=== PATIENT | female | born 1950 | race Caucasian/White ===

== ENCOUNTER 2018-10-17 10:15 | Emergency (ER) | payer OTHER ==
[~2018-10-17] VITALS: Ht 162.6 cm; Wt 122.5 kg
[2018-10-17] MEDS ORDERED: ZANTAC 150MG T150 MG PO (10:21)
[2018-10-17] MEDS ORDERED: BENAZEPRIL-HCT1 EA11 PO (10:21)
[2018-10-17] MEDS ORDERED: XANAX 0.25 MG0.25 MG PO (10:21)
[2018-10-17] MEDS ORDERED: ATENOLOL 25 MG25 M1 PO (10:21)
[2018-10-17] MEDS ORDERED: SYNTHROID100 MC1 PO (10:22)
[2018-10-17 10:28] LABS: ABSOLUTE NEUTROPHILS 6.3 thou/uL (1.4-8.2); BASOPHILS 1.1 % (0.0-2.0); EOSINOPHILS 0.5 % (0.0-3.0); HEMATOCRIT 41.6 % (37.0-47.0); HEMOGLOBIN 13.6 gm/dL (12.0-15.0); LYMPHOCYTES 23.3 % (24.0-44.0); MCH 28.1 pg (26.0-34.0); MCHC 32.8 g/dL (28.0-37.0); MCV 85.7 fL (80.0-100.0); MONOCYTES 6.1 % (1.0-8.0); PLATELET COUNT 299 thou/uL (150-400); RBC 4.85 mil/uL (4.20-5.00); RDW 14.2 % (10.5-14.5); WBC 9.1 thou/uL (4.0-11.0)
[2018-10-17 10:38] LABS: CALCIUM 9.1 mg/dL (8.5-10.1); POTASSIUM 3.5 mmol/L (3.5-5.1)
[2018-10-17 10:44] LABS: ALBUMIN 3.6 g/dL (3.4-5.0); TOTAL BILIRUBIN 0.4 mg/dL (<0.1-1.0); TOTAL PROTEIN 7.2 g/dL (6.4-8.2)
[2018-10-17 10:55] LABS: URINE BILIRUBIN NEGATIVE (Negative); URINE BLOOD NEGATIVE (Negative); URINE CLARITY CLEAR; URINE COLOR YELLOW; URINE GLUCOSE-RANDOM* NEGATIVE (Negative); URINE KETONES NEGATIVE (Negative); URINE LEUKOCYTES 1+ (Negative); URINE NITRITE NEGATIVE (Negative); URINE PROTEIN (DIPSTICK) NEGATIVE (Negative); URINE SPECIFIC GRAVITY 1.025 (1.005-1.035); URINE UROBILINOGEN 0.2 E.U./dl (0.2-1.0)
[2018-10-17 10:56] LABS: CASTS None Seen /LPF (None Seen); CRYSTALS None Seen /LPF (None Seen); SQUAMOUS 4-10 Moderate /LPF (0-3); URINE RBC 0-2 Rare /HPF (0-2); URINE WBC 0-5 Rare /HPF (0-5)
[2018-10-17 11:10] VITALS: BP 126/45
[2018-10-17] MEDS ORDERED: KEFLEX500 M1 PO (11:14)
== END 2018-10-17 11:29 | disposition home or self-care (01) ==
LOC: ER 10:15
PROVIDERS: Emergency Medicine
DX: N39.0 Urinary tract infection, site not specified (principal); E03.9 Hypothyroidism, unspecified; Z88.1 Allergy status to other antibiotic agents

== ENCOUNTER 2020-10-29 16:51 | Emergency (ER) | payer OTHER ==
[~2020-10-29] VITALS: Ht 162.6 cm; Wt 123.4 kg
[~2020-10-29 16:51] MED LIST: ATENOLOL 25 MG25 M1 PO; BENAZEPRIL-HCT1 EA11 PO; KEFLEX500 M1 PO; SYNTHROID100 MC1 PO; XANAX 0.25 MG0.25 MG PO; ZANTAC 150MG T150 MG PO
[2020-10-29 17:55] LABS: ABSOLUTE NEUTROPHILS 7.3 thou/uL (1.4-8.2); BASOPHILS 0.6 % (0.0-2.0); EOSINOPHILS 0.4 % (0.0-3.0); HEMATOCRIT 41.4 % (37.0-47.0); HEMOGLOBIN 13.7 gm/dL (12.0-15.0); LYMPHOCYTES 20.2 % (24.0-44.0); MCH 28.1 pg (26.0-34.0); MCHC 33.2 g/dL (28.0-37.0); MCV 84.7 fL (80.0-100.0); MONOCYTES 6.1 % (1.0-8.0); PLATELET COUNT 333 thou/uL (150-400); POLYS 72.7 % (36.0-66.0); RBC 4.89 mil/uL (4.20-5.00); RDW 13.8 % (10.5-14.5)
[2020-10-29 18:13] LABS: CALCIUM 9.7 mg/dL (8.5-10.1); CREATININE 0.9 mg/dL (0.6-1.0); POTASSIUM 3.6 mmol/L (3.5-5.1)
[2020-10-29 18:23] LABS: ALBUMIN 3.6 g/dL (3.4-5.0); TOTAL BILIRUBIN 0.4 mg/dL (0.2-1.0); TOTAL PROTEIN 7.3 g/dL (6.4-8.2)
[2020-10-29 19:11] LABS: URINE BILIRUBIN NEGATIVE (Negative); URINE BLOOD TRACE (Negative); URINE CLARITY CLEAR; URINE COLOR YELLOW; URINE GLUCOSE-RANDOM* NEGATIVE (Negative); URINE KETONES NEGATIVE (Negative); URINE NITRITE-REFLEX NEGATIVE (Negative); URINE PROTEIN (DIPSTICK) NEGATIVE (Negative); URINE UROBILINOGEN 0.2 E.U./dl (0.2-1.0)
[2020-10-29 19:12] LABS: URINE LEUKOCYTES-REFLEX 1+ (Negative)
[2020-10-29] MEDS ORDERED: CEPHALEXIN500 MG PO (19:39)
[2020-10-29 19:40] LABS: SQUAMOUS 0-3 Few /LPF (0-3); URINE RBC 1-2 Rare /HPF (NONE SEEN); URINE WBC-REFLEX 6-15 Few /HPF (0-5)
[2020-10-29 19:41] LABS: BACTERIA-REFLEX 1-9 Few /HPF (None Seen)
[2020-10-29 19:56] VITALS: BP 164/57
--- NOTE | 2020-11-01 07:27 | EKG ---
[address] [address] [place] [address] ELECTROCARDIOGRAM REPORT Name: ESVIN BRINK [id number] Admission: 10/29/20 Attend Phys: Discharge: 10/29/20 Date of : 54 Report #: [id number] [facility] ED Test Date: 2020-10-29 Test Time: 17:02:55 Pat Name: ESVIN BRINK Department: Room: Gender: F [employer]: ANDREA : 1950 Requested By: Ava Palomino Order Number: [id number] MD: Bi Bradley Measurements Intervals [place] Rate: 75 P: 39 CT: 155 QRS: -11 QRSD: 100 T: 46 QT: 400 QTc: 447 Interpretive Statements Sinus rhythm Low voltage, precordial leads RSR' in V1 or V2, probably normal variant Minimal ST depression, lateral leads No previous ECG available for comparison Electronically Signed On 11-01-2020 7:26:34 CDT by Bi Bradley [email or web address] <ELECTRONICALLY SIGNED> By: Bi Bradley MD, [facility] 11/01/20 0726 1701 01 Bi Bradley MD, FACC /EPI
== END 2020-10-29 19:56 | disposition home or self-care (01) ==
LOC: ER 16:51
PROVIDERS: Nurse Practitioner Family
DX: I50.9 Heart failure, unspecified (principal); Z20.822 Contact with and (suspected) exposure to COVID-19; N39.0 Urinary tract infection, site not specified; E03.9 Hypothyroidism, unspecified; Z79.899 Other long term (current) drug therapy; Z88.1 Allergy status to other antibiotic agents

== ENCOUNTER → 2020-11-23 | Outpatient (CLI) | payer OTHER ==
[~2020-11-23] MED LIST changes: +CEPHALEXIN500 MG PO
== END ==
LOC: SJCVCIMAG 08:28
PROVIDERS: ATTEND Internal Medicine
DX: I08.1 Rheumatic disorders of both mitral and tricuspid valves (principal); I50.32 Chronic diastolic (congestive) heart failure; I11.0 Hypertensive heart disease with heart failure; E78.5 Hyperlipidemia, unspecified; I47.1 Supraventricular tachycardia; E03.9 Hypothyroidism, unspecified; Z88.1 Allergy status to other antibiotic agents; Z79.899 Other long term (current) drug therapy; Z72.89 Other problems related to lifestyle